=== PATIENT | female | born 2005 | race African-American/Black ===

== ENCOUNTER 2024-03-18 14:15 | Emergency (ER) | payer SELFPAY ==
[~2024-03-18] VITALS: Ht 180.3 cm; Wt 95.3 kg
[2024-03-18] MEDS ORDERED: IOPAMIDOL 370 MG/ML 100 ML INFUS..BTL INJ ONE (15:07)
[2024-03-18] MEDS ORDERED: SODIUM CHLORIDE 0.9% 100 ML ONE (15:07)
[2024-03-18 17:54] VITALS: PULSE 73; RESP 18; TEMP 98.6; O2SAT 98
== END 2024-03-18 18:08 | disposition home or self-care (01) ==
LOC: FSED 14:50
DX: R41.82 Altered mental status, unspecified (principal); R10.30 Lower abdominal pain, unspecified
CPT/HCPCS: 36415; 74174; 80053; 80307; 81025; 82948; 85025; 93005; 99284; J7050; Q9967